=== PATIENT | male | born 1975 | race Caucasian/White ===

== ENCOUNTER 2020-03-04 14:44 | Emergency (ER) | payer SELFPAY ==
[~2020-03-04] VITALS: Ht 172.7 cm; Wt 109.1 kg
[2020-03-04 17:00] VITALS: BP 128/71
== END 2020-03-04 17:00 | disposition home or self-care (01) ==
LOC: EMS 14:51
DX: R06.02 Shortness of breath (principal); R05 Cough; R50.9 Fever, unspecified; R11.2 Nausea with vomiting, unspecified; Z03.818 Encounter for observation for suspected exposure to other biological agents ruled out
CPT/HCPCS: 99283; U0003